=== PATIENT | female | born 1990 | race African-American/Black ===

== ENCOUNTER 2017-05-26 13:42 | Day surgery (SDC) | payer MEDICAID ==
[2017-05-26 16:12] VITALS: BMI 23.1
[2017-05-26 16:13] VITALS: BP 106/66; TEMP 98.4
--- NOTE | 2017-05-26 18:02 | HP ---
OB ER ENCOUNTER DATE OF SERVICE: 05/26/2017 PRIMARY OB: Clinic. CHIEF COMPLAINT: Shortened cervical length. HISTORY OF PRESENT ILLNESS: The patient is a 26-year-old female sent from the Clinic for incidental finding of a shortened cervical length of 1.5 cm. The patient has a history of a 27-week delivery with her previous . The patient denies any leakage of fluid, vaginal bleeding or uterine contractions at this time. The patient is just now beginning her care and has had her first visit yesterday. PAST MEDICAL HISTORY: Significant for history of deliveries. PAST SURGICAL HISTORY: She has had a . G3, P3 female. SOCIAL HISTORY: The patient reports that she has had recently quit smoking and drinks alcohol on occasion when she is not . ALLERGIES: No known drug allergies. MEDICATIONS: vitamins. LABORATORY DATA: Unavailable at this time. REVIEW OF SYSTEMS: The patient denies any recent illness, fever, fall, headache , chest pain, shortness of breath, nausea, vomiting, diarrhea, or constipation. She denies any hip problems, knee problems, or muscle weakness. She denies vaginal bleeding or leakage of fluid. She denies urinary urgency or frequency. PHYSICAL EXAMINATION: VITAL SIGNS: Blood pressure 106/66, heart rate of 72, respiratory rate 17, temperature 98.4. GENERAL: She appears to be in no acute distress. She is alert and oriented, cooperative and pleasant to interact with. HEENT: Head is normocephalic, atraumatic. CHEST: Clear to auscultation bilaterally. HEART: Regular rate and rhythm. ABDOMEN: Soft, nontender to palpation. EXTREMITIES: Nontender, nonedematous. PELVIC: Vulva is without masses, lesions or erythema. Vagina is moist with some foamy discharge. Cervix appears to be very soft and dilated, but no visible membranes. On digital exam, the patient has very soft cervix. Internal os is fingertip and she is about 30% effaced on digital exam. Dopplers , infant Doppler in the 140s. HOME APPRAISER-III is significant for Trichomonas, Gardnerella and yeast. GC and chlamydia is pending. ASSESSMENT AND PLAN: The patient is a 26-year-old female with a history of delivery at 27 weeks, who has been sent to Labor and Delivery ER emergency room for a shortened cervical length of 1.5 cm. The patient is dilated, has a very soft cervix and has been counseled for the need of a cervical cerclage. The patient does not show any signs of labor or leakage of fluid; however, her HOME APPRAISER-III demonstrates she is positive for Trichomonas, Gardnerella and Helga. The patient will need to be treated and can get her cerclage when she has been successfully treated. We initially scheduled for . We will try to delay a couple days to give her body time to clear this infection. I have attempted several times to contact this patient with out success. Partner will continue to try. DOMINICK
[2017-05-27] MEDS ORDERED: FLU VACC QS2017-18 36 mo. & older 0.5 ML SYRINGE IM ONE (09:00)
== END 2017-05-26 16:21 | disposition home or self-care (01) ==
LOC: L&D/OP 13:42
PROVIDERS: ATTEND Obstetrics & Gynecology
DX: O26.872 Cervical shortening, second trimester (principal); Z79.899 Other long term (current) drug therapy; Z87.891 Personal history of nicotine dependence; Z3A.27 27 weeks gestation of pregnancy
CPT/HCPCS: 85025; 87480; 87510; 87591; 87660

== ENCOUNTER 2017-05-26 16:40 | Outpatient (CLI) | payer MEDICAID ==
[2017-05-26 17:10] LABS: Hematocrit 38.7 % (36.0-47.0); Mean Platelet Volume 5.7 fL (7.4-10.4); Red Blood Cell (RBC) Count 3.75 mill/uL (4.20-5.40)
[2017-05-26 18:04] LABS: Neutrophil 62 % (42-75)
== END 2017-05-26 16:41 | disposition home or self-care (01) ==
LOC: LABBT 16:40
PROVIDERS: ATTEND Obstetrics & Gynecology
DX: N88.3 Incompetence of cervix uteri (principal)
CPT/HCPCS: 85025

== ENCOUNTER 2017-05-31 07:44 | Day surgery (SDC) | payer MEDICAID ==
[2017-05-26 16:48] VITALS: BMI 23.1
[2017-05-31] MEDS ORDERED: Lidocaine 1% (PF) 30 ML VIAL ONE (09:07)
[2017-05-31] MEDS ORDERED: Fentanyl 100 MCG/2 ML VIAL ONE (09:32)
[2017-05-31] MEDS ORDERED: Succinylcholine Chloride 20 MG/ML 10 ml SYRINGE FS ONE (09:47)
[2017-05-31] MEDS ORDERED: Propofol 200 MG/20 ML VIAL ONE (09:47)
[2017-05-31] MEDS ORDERED: Lidocaine 2% MPF 10 ML AMP (For Epidural Use) ONE (09:47)
[2017-05-31] MEDS ORDERED: PHENYLEPHRINE-NS 100 MCG/ML 10 ML SYRINGE ONE (09:47)
--- NOTE | 2017-05-31 17:21 | OP ---
DATE OF OPERATION: 05/31/2017 PREOPERATIVE DIAGNOSES: 1. Incompetent cervix. 2. Intrauterine at 22 weeks. POSTOPERATIVE DIAGNOSES: 1. Incompetent cervix. 2. Intrauterine at 22 weeks. 3. Left-sided Bartholin's gland cyst. PROCEDURE: Cervical cerclage Scotty. SURGEON: Skyler Norris M.D. COMPLICATIONS: None. COUNTS: Correct. ESTIMATED BLOOD LOSS: 50 mL FINDINGS: Soft bulbous cervix approximately 2-3 cm dilated and a soft left Bartholin's gland cyst. DESCRIPTION OF PROCEDURE: The patient was taken to the operating room for a scheduled cervical cercl age due to premature shortening dilation and history of a 27-week delivery with a previous . The patient was sent to nc for evaluation after having a routine ultrasound at 22 weeks with the ce rvical length of 1 cm. When she came to see me, we discussed her history and ultrasound findings and counseled her for placement of a cervical cerclage and starting progesterone supplementation. The p atient has agreed to move forward. I discussed the risks of bleeding, infection, and damage to bowel or bladder, labor, premature rupture of membranes, infection. Patient expressed und erstanding and desired to proceed. She was placed under general anesthesia and placed in dorsal lith otomy position in [facility]. She was prepared and draped in a normal sterile fashion. Attentio n was placed vaginally with a posterior weighted speculum and 2 right angle retractors. The cervix w as brought into view and with the aid of 2 ring forceps and a double needled mersilene tape. A purse string suture was placed around the cervix avoiding 6 and 9 o'clock for potential vascularity approxi mately 2 cm from the external os close to the vesicocervical reflection. Once this was placed, it wa s cinched down for until we could feel digitally that the cervix had been closed. A suture was tied down with a series of square knots and then an air knot was placed for identification of the tie of t he suture for later removal. At this point, the bleeding had stopped and the procedure was complete. The patient was taken out of lithotomy position and taken to recovery room in stable condition.
== END 2017-05-31 12:20 | disposition home or self-care (01) ==
LOC: SDC 07:44
PROVIDERS: ATTEND Obstetrics & Gynecology
PROC: 0UVC7ZZ Restriction of Cervix, Via Natural or Artificial Opening (ICD-10-PCS; principal; 2017-05-31)
DX: O34.32 Maternal care for cervical incompetence, second trimester (principal); O34.82 Maternal care for other abnormalities of pelvic organs, second trimester; N75.0 Cyst of Bartholin's gland; Z3A.22 22 weeks gestation of pregnancy; Z98.891 History of uterine scar from previous surgery; Z87.51 Personal history of pre-term labor; Z87.891 Personal history of nicotine dependence
CPT/HCPCS: 86850; 86900; 86901; J2001; J2704; J3010

== ENCOUNTER 2017-08-13 15:17 | Day surgery (SDC) | payer MEDICAID, OTHER ==
[2017-08-13 16:24] VITALS: BP 110/64; TEMP 98.3
[2017-08-13] MEDS ORDERED: FLU VACC QS2017-18 36 mo. & older 0.5 ML SYRINGE IM ONE (16:30)
--- NOTE | 2017-08-13 17:03 | PDOC.LDHP ---
Labor and Delivery H&P Chief complaint: contractions HPI: Pt comes in w/ complaint of feeling ctx. She says she was out running erands this morning and states she had not been drinking a lot of fluids. She said around 1 she started feeling some ctx. Stated that they started to get stronger and somewhat regular. She has a hx of short cervix and a cervical cerclage in place. She has hx of labor with both her previous c-sections. Due to her hx and having ctx she decided to be safe and come in. Denies any bleeding, loss of fluid. Reports having discharge, but denies itching , burning or irritation. Says she had it worked up at appointment Thursday and everything was fine. Reports feeling baby moving. Current gestational age (weeks): 33 (4 days) Due date: 09/27/17 Dating criteria: last menstrual period, second trimester ultrasound Grav: 3 Para: 3 OB History Details: Hx of labor due to shortened cervix 1st - @ 34 weeks 2nd - @ 27 weeks, twins. Delivered due to Breech position. Cerclage placed in 05/31/17 Anemia in Hx of Drug Abuse- Cannibinoid + back in April 2017 Abnormal US findings: No Past Medical History: Depression Current medications: pre-gabbi vitamins, other (Zoloft) Previous surgical history: low tranverse CS (Due to breech position. Delivered @ 27 weeks) Social history: none - Physical Exam General: NAD Heart: RRR Lungs: CTAB Abdomen: NTTP Extremeties: no edema FHT: category 1, variability present - OB Labs Blood type: O RH: positive Antibody Screen: negative HIV: negative RPR: negative HEPSAg: negative 1 hour GCT: negative GBS: unknown Rubella: immune - Plan Plan: observation in L&D -: 26 yo @ 33.4 wks dated by LMP and 2T US is here due to having Ctx -History of Labor, Short Cervix w/ Cervical Cerclage in Place -Had 3 ctx in 45 min strip. Ctx have subsided most recently on monitoring after drinking 2 bottles of water. -Will continue to observe her for an hour or so and make sure she does not have regular contractions. If she does may want to make sure cerclage is in place. -Will continue hydration PO -Pt reporting Discharge but is not bothering her at this time. Recently had worked up Thursday and everything is fine. No further testing needed at this time. Anemia of -Not on Iron, taking . <Brendan Vasquez - Last Filed: 08/13/17 17:06> <David Hartley - Last Filed: 08/13/17 18:34> Allergies/Adverse Reactions: Allergies Allergy/AdvReac Type Severity Reaction Status Date / Time No Known Drug Allergies Allergy Verified 08/13/17 16:14 Attending Addendum - Attending Addendum I personally evaluated the patient and discussed the management with Dr. Vasquez. I agree with the History, Examination, Assessment and Plan documented above with any addition or exceptions noted below. <David Hartley - Last Filed: 08/13/17 18:34>
--- NOTE | 2017-08-13 18:40 | PDOC.LDPN ---
Labor & Delivery Progress Note - Subjective Subjective: comfortable - Objective Vital signs reviewed and normal: yes General: NAD, resting (no contractions) - Assessment (1) History of delivery, currently in third trimester Code(s): O09.213 - SUPRVSN OF PREG W HISTORY OF PRE-TERM LABOR, THIRD TRIMESTER Status: Acute (2) Intrauterine Code(s): Z34.90 - ENCNTR FOR SUPRVSN OF NORMAL , UNSP, UNSP TRIMESTER Status: Acute (3) Cervical insufficiency during in third trimester, antepartum Code(s): O34.33 - MATERNAL CARE FOR CERVICAL INCOMPETENCE, THIRD TRIMESTER Status: Acute (4) Cervical cerclage suture present in third trimester Code(s): O34.33 - MATERNAL CARE FOR CERVICAL INCOMPETENCE, THIRD TRIMESTER Status: Acute -: 26 yo @ 33.4 wks dated by LMP and 2T US here with contractions. After po hydration, contractions have ceased. Pt with f/u appt with MFM tomorrow and PNC next week. Discussed POC with Dr. Hartley who agrees with A&P. No indication for labor at this time. D/C home with labor precautions.
== END 2017-08-13 18:53 | disposition home or self-care (01) ==
LOC: L&D/OP 15:17
PROVIDERS: ATTEND Obstetrics & Gynecology
DX: O47.03 False labor before 37 completed weeks of gestation, third trimester (principal); O09.213 Supervision of pregnancy with history of pre-term labor, third trimester; O34.33 Maternal care for cervical incompetence, third trimester; O99.013 Anemia complicating pregnancy, third trimester; O99.323 Drug use complicating pregnancy, third trimester; F12.10 Cannabis abuse, uncomplicated; Z79.899 Other long term (current) drug therapy; Z3A.33 33 weeks gestation of pregnancy
CPT/HCPCS: 99282

== ENCOUNTER 2017-09-08 15:34 | Inpatient (IN) | payer OTHER ==
[2017-09-08] MEDS ORDERED: Ondansetron PF 4 MG/2 ML Vial IVP PRN (15:53)
[2017-09-08] MEDS ORDERED: Acetaminophen 500 MG TAB PO PRN (15:53)
[2017-09-08] MEDS ORDERED: Promethazine HCl 25 MG/ML VIAL IM PRN (15:53)
[2017-09-08] MEDS ORDERED: LR / Pitocin 40 units/1000 ml 40 UNITS/1,000 ML BAG IV SCH (16:00)
[2017-09-08] MEDS ORDERED: Lidocaine 1% (PF) 30 ML VIAL SC PRN (16:00)
[2017-09-08] MEDS ORDERED: LR 500 ML/Oxytocin 10 units 500 ML IV SCH ×2 (16:00)
[2017-09-08] MEDS ORDERED: Lactated Ringer's 1,000 ML IV SCH (16:00)
[2017-09-08] MEDS ORDERED: LR 500 ML/Oxytocin 10 units 500 ML IVPB SCH (16:00)
[2017-09-08] MEDS ORDERED: Ibuprofen 800 MG TAB PO PRN (16:00)
--- NOTE | 2017-09-08 16:32 | PDOC.LDHP ---
Labor and Delivery H&P Chief complaint: loss of fluid HPI: 26 year old at 37.2 wks by LMP/22.2 wk U/S. Patient presents from [facility] with suspected SROM. She states she woke up to a large amount of fluid around 04 :00 this morning. Throughout the day, she has felt like she was leaking fluid. She was checked in [facility] and found to be 4 cm dilated. Patient was scheduled to be induced tonight per MFM recommendations for delivery at 37 1/2 wks gestation due to increased S/D ratio on umbilical artery doppler. Patient has two prior deliveries. She went into labor at 34 weeks during her first and delivered a healthy vaginally. Patient with twins during her second . She went into labor at 27 weeks and presented as at 10 cm dilation. She went back for stat as one Baby B was breech. During this she has been taking progesterone from 24-36 weeks. Additionally, she got a cerclage placed around 23 weeks and it was removed 3 days ago. Other pertinent medical history includes depression for which she is currently taking zoloft. Current gestational age (weeks): 37 (37.2) Due date: 09/27/17 Dating criteria: last menstrual period, second trimester ultrasound Grav: 3 () Para: 3 OB History Details: 1. Hx of labor s/p progesterone from 24-36 weeks and cerclage which was removed three days ago 2. Maternal depression currently on Zoloft 3. Short cervical length s/p cerclage which was removed three days ago 4. Increased S/D ratio on umbilical artery doppler with recommendations to induce at 37 1/2 wks per MFM 5. IUGR 6. Late care 7. Prior c/section 8. Treated for BV, trichomonas and yeast during early Current complications: IUGR Abnormal US findings: Yes (Umbilical artery S/D ratio 4.11) Current medications: pre- vitamins, other (Zoloft 50 mg qd) Previous surgical history: low tranverse CS, other Social history: other (History of marijuana use. Last use 04/2017) - Physical Exam Vital signs reviewed and normal: yes General: NAD, resting Heart: RRR Lungs: nonlabored breathing Abdomen: NTTP Extremeties: no edema FHT: category 1, variability present Crayne contractions every: q2-3 minutes - Vaginal Exam cm dilated: 5 (16:04 by Coby & Nurse) Effacement: 75% Station: -1 - OB Labs Blood type: O RH: positive Antibody Screen: negative HIV: negative RPR: negative HEPSAg: negative GBS: negative Rubella: immune - Assessment L&D Assessment: term patient in labor - Plan Plan: admit to L&D -: Term intrauterine in latent labor - Making change quickly - Went from 4 cm to 5.5 cm within a matter of a few hours - Recheck in 2 hours - Augment labor if needed - Patient refusing epidural at this time Trial of labor after C/S - Risks and benefits explained at length - Patient refusing epidural at this time as she had a bad experience with prior Hx of labor - S/p cerclage and progesterone Hx of maternal depression - Continue zoloft PP IUGR with elevated S/D ratio - [facility] recommends induction at 37 and a half weeks - Was scheduled for induction tonight but presented this afternoon with possible SROM and in latent labor <Namrata Tenorio - Last Filed: 09/08/17 16:58> <Kei Guerra - Last Filed: 10/05/17 03:14> Allergies/Adverse Reactions: Allergies Allergy/AdvReac Type Severity Reaction Status Date / Time No Known Drug Allergies Allergy Verified 08/13/17 16:14 Attending Addendum - Attending Addendum Date/Time: 10/05/17 0310 I personally evaluated the patient and discussed the management with Dr. Tenorio. I agree with the History, Examination, Assessment and Plan documented above with any addition or exceptions noted below. 27 y.o. at 37.2 weeks in labor with probable PROM in pt. with SGR, abnl S/D ratio and desire for TOLAC. Manage for active labor. Recent Cerclage removal, no s/s's of infection at present. <Kei Guerra - Last Filed: 10/05/17 03:14>
[2017-09-08 17:12] VITALS: BMI 25.0
--- NOTE | 2017-09-08 19:15 | PDOC.LDPN ---
Labor & Delivery Progress Note - Subjective Subjective: painful contractions, vaginal pressure - Objective Vital signs reviewed and normal: yes General: breathing through contractions Uterine fundus: non tender SVE: /-1 by RN FHT: category 2, variable decelerations, variability present (+accelerations) AROM: clear fluid IUPC placed: yes Resuscitative measures: amniofusion Plan: continue plan of care, resuscitative measures (Recurrent variables post AROM. Amnioinfusion started.)
[2017-09-08] MEDS ORDERED: Fentanyl 100 MCG/2 ML VIAL ONE (19:42)
[2017-09-08] MEDS ORDERED: Fentanyl 100 MCG/2 ML VIAL SLOW IVP SCH (19:45)
--- NOTE | 2017-09-08 20:12 | PDOC.OPDEL ---
OB Operative/Delivery Note Delivery Dr/Surgeon: Alf Thakkar M.D. Assist: Kip Duarte Pre-Delivery Diagnosis: non-reassuring tracing (Persistent category 2.), other (IOL indicated for IUGR and Increased umbilical doppler gradient. TOLAC.) Procedure/Post Delivery Dx: other (Amnifusion indicated for persistent category 2 FHT.) Weeks gestation: 37 (37.2) Anesthesia: none - Findings a Sex: male - 1 min: 8 - 5 min: 9 - Additional Findings/Plan Placenta delivered: spontaneous Repaired Obstetrical Laceration: left labial (hemostatic) Estimated blood loss: 200 Compilations/Other Findings: Approximately 1 hour prior to delivery the patient began to experience a persitent category 2 tracing with variable decelerations and late decelerations. During this time she progress from 5 cm dilated to delivered. The persistent category 2 tracing likely 2/2 rapid change. Baby had of 8 and 9 at 1 and 5 minutes. Required no interventions. Post delivery plan: routine recovery <Alf Thakkar - Last Filed: 09/08/17 20:09> Attending Addendum - Attending Addendum Date/Time: 09/08/17 9736 I personally evaluated the patient and discussed the management with Dr. Thakkar. I agree with the History, Examination, Assessment and Plan documented above with any addition or exceptions noted below. Present for delivery. No immediate complications. AG 02/18. Placenta to path. <Kip Duarte - Last Filed: 09/08/17 21:07>
[2017-09-08] MEDS ORDERED: LR / Pitocin 40 units/1000 ml 1,000 ML IV PRN (22:18)
[2017-09-08] MEDS ORDERED: Preparation H Ointment 28 GM TUBE PR PRN (22:52)
[2017-09-08] MEDS ORDERED: Lanolin Ointment 7 GM TUBE TOP PRN (22:52)
[2017-09-08] MEDS ORDERED: LR / Pitocin 40 units/1000 ml 1,000 ML IV SCH (22:52)
[2017-09-08] MEDS ORDERED: diphenhydrAMINE 25 MG CAP PO PRN (22:52)
[2017-09-08] MEDS ORDERED: Benzocaine/Menthol 20-0.5% 60 ML CAN TOP PRN (22:52)
[2017-09-08] MEDS ORDERED: Milk Of Magnesia 30 ML UDCUP PO PRN (22:52)
[2017-09-08] MEDS ORDERED: Bisacodyl 10 MG SUPP PR PRN (22:52)
[2017-09-08] MEDS ORDERED: Docusate Calcium (SURFAK) 240 MG CAP PO SCH (23:00)
[2017-09-08 23:18] LABS: Syphilis Antibody Nonreactive (Nonreactive); Syphilis Antibody Index 0.03 S/CO (<1.00 Non-Reactive)
[2017-09-08 23:30] LABS: HBSAg Index 0.39 S/CO (0-0.99); HIV (1/2) Antibody/Antigen Non-Reactive (NonReactive); HIV 1/2 INDEX 0.21 S/CO (<1.00); Hep B Surf Ag Non-Reactive S/CO (NonReactive)
[2017-09-09 02:44] LABS: Hemoglobin 13.1 g/dL (12.0-16.0); Mean Corpuscular HGB CONC 32.5 g/dL (32.0-36.0); Mean Corpuscular Hemoglobin 33.4 pg (27.0-31.0); Mean Platelet Volume 7.2 fL (7.4-10.4); Platelet Count 217 thou/uL (130-400); RBC Distribution Width 12.6 % (11.5-14.5); Red Blood Cell (RBC) Count 3.91 mill/uL (4.20-5.40)
[2017-09-09] MEDS: Ibuprofen 800 MG TAB PO PRN ×3 (05:44→22:11)
[2017-09-09 05:46] LABS: #Eosinphils 0.1 thou/uL (0.0-0.7); #Lymphocytes 1.7 thou/uL (1.20-3.40); #Neutrophils 6.8 thou/uL (1.40-6.50); %Basophils 0.4 % (0.0-1.0); %Eosinophils 1.3 % (0.0-10.0); %Lymphocytes 17.5 % (21.0-51.0); %Monocytes 10.7 % (0.0-10.0); %Neutrophils 70.1 % (42.0-75.0); Hemoglobin 11.4 g/dL (12.0-16.0); Mean Corpuscular Hemoglobin 33.6 pg (27.0-31.0); Mean Platelet Volume 6.1 fL (7.4-10.4); Platelet Count 222 thou/uL (130-400); RBC Distribution Width 12.2 % (11.5-14.5); White Blood Cell (WBC) Count 9.8 thou/uL (4.8-10.8)
--- NOTE | 2017-09-09 06:58 | PDOC.PP ---
Post Progress Note Post Day #: 1 Subjective: 26 yo delivered via , a male at 37.2w gestation at 1949 on . Patient doing well this morning. Has been up using the restroom without trouble. Reports pain is minimal. Does express some pain with , but that overall going well. PO intake tolerated: yes Flatus: no Ambulation: yes Vital Signs (12 hours) Temp Pulse Resp BP BP 09/09/17 05:20 97.9 F 69 18 109/59 L 09/09/17 00:15 98.4 F 68 18 09/08/17 23:35 98.4 F 68 18 115/64 09/08/17 22:35 98.8 F 68 18 114/67 09/08/17 19:30 98.4 F 68 18 Weight Weight 68.039 kg - Physical Examination General: NAD Cardiovascular: no m/r/g, RRR Respiratory: clear to auscultation bilaterally, non-labored breathing Abdominal: + bowel sounds, lochia Extremities: negative homans (B) Psychiatric: normal affect Result Diagrams: 09/09/17 05:13 Additional Labs: Post Labs Blood Type O POSITIVE 09/08/17 16:35 Hep Bs Antigen Non-Reactive S/CO (NonReactive) 09/08/17 16:45 (1) Intrauterine Code(s): Z34.90 - ENCNTR FOR SUPRVSN OF NORMAL , UNSP, UNSP TRIMESTER Status: Acute Comment: 26 yo delivered via precipitous , a male infant at 37.2w gestation at 1949 on 09/08/17. Post day 1. Doing well, encourage ambulation. Pain well controlled with Ibuprofen. bpo specialist out of town so will give info to follow up outpatient for latch to be evaluated. In the meantime, appreciate nursery staff helping with establishing good latch. Continue routine care. Likely d/c home tomorrow. <Jasmin Orozco - Last Filed: 09/09/17 11:47> Weight Weight 68.039 kg Result Diagrams: 09/09/17 05:13 Additional Labs: Post Labs Blood Type O POSITIVE 09/08/17 16:35 Hep Bs Antigen Non-Reactive S/CO (NonReactive) 09/08/17 16:45 <Kei Guerra - Last Filed: 10/05/17 03:24> Attending Addendum - Attending Addendum Date/Time: 10/05/17 0324 I personally evaluated the patient and discussed the management with Dr. Orozco. I agree with the History, Examination, Assessment and Plan documented above with any addition or exceptions noted below. Pain controlled. Afeb. Fundus firm. Lochia normal. Routine PP care. <Kei Guerra - Last Filed: 10/05/17 03:24>
[2017-09-09] MEDS ORDERED: Adacel (T-DAP) 0.5 ML VIAL IM ONE (09:00)
[2017-09-09] MEDS: Docusate Calcium (SURFAK) 240 MG CAP PO SCH ×2 (09:09→22:09)
[2017-09-09] MEDS: Ferrous Sulfate 325 MG TAB PO SCH ×2 (09:56→18:34)
[2017-09-10] MEDS: Ibuprofen 800 MG TAB PO PRN (05:59)
--- NOTE | 2017-09-10 07:30 | PDOC.PP ---
Post Progress Note Post Day #: 2 Subjective: Patient is doing well this morning and reports readiness to go home. No acute events overnight. No complaints. Bleeding wnl, pain controlled with Ibuprofen. PO intake tolerated: yes Flatus: yes Ambulation: yes Vital Signs (12 hours) Temp Pulse Resp BP 09/10/17 05:00 98.4 F 85 18 119/68 09/10/17 04:00 98.6 F 95 18 09/10/17 00:00 98.6 F 95 18 09/09/17 23:00 98.6 F 95 18 120/65 09/09/17 20:00 98.8 F 82 18 Weight Weight 68.039 kg - Physical Examination General: NAD Cardiovascular: no m/r/g, RRR Respiratory: clear to auscultation bilaterally, non-labored breathing Abdominal: + bowel sounds, lochia, no distention, appropriately TTP Extremities: negative homans (B) Neurological: no gross focal deficits Psychiatric: A&Ox3, normal affect Result Diagrams: 09/09/17 05:13 Additional Labs: Post Labs Blood Type O POSITIVE 09/08/17 16:35 Hep Bs Antigen Non-Reactive S/CO (NonReactive) 09/08/17 16:45 (1) Intrauterine Code(s): Z34.90 - ENCNTR FOR SUPRVSN OF NORMAL , UNSP, UNSP TRIMESTER Status: Acute Comment: 26 yo delivered via precipitous , a male at 37.2w gestation at 1949 on 09/08/17. Post day 2. Doing well. Pain well controlled with Ibuprofen. export specialist out of town so will give info to follow up outpatient for latch to be evaluated. In the meantime, appreciate nursery staff helping with establishing good latch. Continue routine care. D/c home today. <Jasmin Orozco - Last Filed: 09/10/17 09:11> Weight Weight 68.039 kg Result Diagrams: 09/09/17 05:13 Additional Labs: Post Labs Blood Type O POSITIVE 09/08/17 16:35 Hep Bs Antigen Non-Reactive S/CO (NonReactive) 09/08/17 16:45 <Kei Guerra - Last Filed: 10/05/17 03:35> Attending Addendum - Attending Addendum Date/Time: 10/05/17 0330 I personally evaluated the patient and discussed the management with Dr. Orozco. I agree with the History, Examination, Assessment and Plan documented above with any addition or exceptions noted below. Pain controlled. Lochia normal. Fundus firm. Stable for d/c home. <Kei Guerra - Last Filed: 10/05/17 03:35>
[2017-09-10 07:43] VITALS: BP 109/75; TEMP 97.6
[2017-09-10] MEDS: Ferrous Sulfate 325 MG TAB PO SCH (08:34)
[2017-09-10] MEDS: Docusate Calcium (SURFAK) 240 MG CAP PO SCH (08:34)
== END 2017-09-10 15:05 | disposition home or self-care (01) | DRG 775 ==
LOC: L&D 15:34 → 3SW 22:35
PROVIDERS: ADMIT Family Medicine; ATTEND Family Medicine
PROC: 10E0XZZ Delivery of Products of Conception, External Approach (ICD-10-PCS; principal; 2017-09-08)
PROC: 10907ZC Drainage of Amniotic Fluid, Therapeutic from Products of Conception, Via Natural or Artificial Opening (ICD-10-PCS; 2017-09-08)
PROC: 10H07YZ Insertion of Other Device into Products of Conception, Via Natural or Artificial Opening (ICD-10-PCS; 2017-09-08)
DX: O36.5930 Maternal care for other known or suspected poor fetal growth, third trimester, not applicable or unspecified (principal); O26.873 Cervical shortening, third trimester; O99.344 Other mental disorders complicating childbirth; F32.9 Major depressive disorder, single episode, unspecified; O34.211 Maternal care for low transverse scar from previous cesarean delivery; O76 Abnormality in fetal heart rate and rhythm complicating labor and delivery; O62.3 Precipitate labor; Z3A.37 37 weeks gestation of pregnancy; Z79.899 Other long term (current) drug therapy; Z37.0 Single live birth
CPT/HCPCS: 36415; 85025; 86780; 86850; 86900; 86901; 87340; 87389; 88307; J2001; J3010